=== PATIENT | female | born 1945 | race Caucasian/White ===

== ENCOUNTER 2018-05-05 13:01 | Emergency (ER) | payer MEDICARE, OTHER ==
--- NOTE | 2018-05-05 13:39 | ED.PDOC ---
History of Present Illness - General Chief Complaint: Neuro Symptoms/Deficits Stated Complaint: confusion,lethargic,pain all over Time Seen by Provider: 05/05/18 13:34 Source: patient, family Additional Information: 72 YEAR OLD SP CRANIOTOMY FOR PLACEMENT FOR STIMULATOR FOR HERE TREMORS AT [place] BY NEUROSURGEON DR DENNIS HERE WITH COMPLAINTS OF HEADACHE GENERAL WEAKNESS THEY HAD CALLED HER SURGEON HE HAD RECOMMENDED TO GET A CT BRAIN SHE HAS NO FEVER CHILLS FRONTAL CRANIOTOMY SKIN INCISION WOUND APPEARS TO BE HEALTHY NEURO EXAM NO FOCAL DEFICIT PUPILS EQUAL AND REACTIVE - History of Present Illness Timing/Duration: 24 hours Severity: moderate Improving Factors: nothing Worsening Factors: nothing Associated Symptoms: denies symptoms Allergies/Adverse Reactions: Allergies Morphine Allergy (Verified 05/05/18 13:30) Sulfa Antibiotics Allergy (Verified 05/05/18 13:30) Review of Systems - Review of Systems Constitutional: States: no symptoms reported EENTM: States: no symptoms reported Respiratory: States: no symptoms reported Cardiology: States: no symptoms reported Gastrointestinal/Abdominal: States: no symptoms reported Genitourinary: States: no symptoms reported Musculoskeletal: States: no symptoms reported Skin: States: no symptoms reported Neurological: States: see HPI Endocrine: States: no symptoms reported Hematologic/Lymphatic: States: no symptoms reported Past Medical History (General) - Patient Medical History Hx Stroke: No Hx Cardiac Disorders: Yes Hx Congestive Heart Failure: No Hx Thyroid Disease: Yes Hx Diabetes: Yes Surgical History: Hysterectomy - Vaccination History Hx Influenza Vaccination: No Hx Pneumococcal Vaccination: Yes - Social History Hx Tobacco Use: Yes - Female History Patient is a Female of Child Bearing Age (10 -59 yrs old): No Family Medical History - Family History Mother Family History: Unknown Living Status: Unknown Physical Exam - Physical Exam General Appearance: Alert, Anxious Eye Exam: bilateral normal Ears, Nose, Throat: hearing grossly normal, normal ENT inspection, normal pharynx Neck: non-tender, full range of motion, supple Respiratory: chest non-tender, lungs clear, normal breath sounds, no respiratory distress Cardiovascular/Chest: normal peripheral pulses, regular rate, rhythm, no edema, no gallop, no JVD Back Exam: normal inspection, no CVA tenderness, no vertebral tenderness Extremity: normal range of motion, non-tender, normal inspection, no pedal edema Neurologic: information security consultant II-XII nml as tested, no motor/sensory deficits, alert, normal mood/affect Departure - Departure Clinical Impression: Debilitated patient, 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 Copy, Patient Portal Self Enrollment Diet: resume usual diet Activity: increase activity as tolerated
[2018-05-05 13:42] VITALS: TEMP 100
--- NOTE | 2018-05-05 14:13 | CT ---
EXAM DESCRIPTION: Head CLINICAL HISTORY: post procedure confusion COMPARISON: No comparison imaging is available. TECHNIQUE: Axial CT images of the head were performed without contrast. This exam was performed according to our departmental dose-optimization program which includes automated exposure control, adjustment of the mA and/or kV according to patient size and/or use of iterative reconstruction technique. FINDINGS: Bilateral frontal troy holes are present with electrode stimulator wires extending through the bilateral frontal lobes into the basal ganglia bilaterally. Associated mild pneumocephalus. No acute intracranial hemorrhage is identified. No mass or mass effect. No hydrocephalus. Cerebellum, brainstem and proximal cervical spinal cord are grossly unremarkable in appearance. Usual surgical changes seen within the scalp. The skull base is intact. The paranasal sinuses and orbits are unremarkable. IMPRESSION: Normal postoperative findings. Electronically signed by: Mustapha Ch MD 05/05/2018 2:12 PM CDT
[2018-05-05 14:50] VITALS: BP 166/61; O2SAT 96
== END 2018-05-05 14:36 | disposition home or self-care (01) ==
LOC: ER 13:01
DX: G25.2 Other specified forms of tremor (principal); G96.9 Disorder of central nervous system, unspecified; R53.81 Other malaise; R51 Headache; Z98.890 Other specified postprocedural states; E11.9 Type 2 diabetes mellitus without complications; I12.9 Hypertensive chronic kidney disease with stage 1 through stage 4 chronic kidney disease, or unspecified chronic kidney disease; E07.9 Disorder of thyroid, unspecified; Z87.891 Personal history of nicotine dependence; Z88.2 Allergy status to sulfonamides; Z88.5 Allergy status to narcotic agent